=== PATIENT | male | born 1965 | race Caucasian/White ===

== ENCOUNTER → 2017-04-21 | Day surgery (SDC) | payer OTHER ==
[~2017-04-21] VITALS: Ht 172.7 cm; Wt 82.5 kg
[~2017-04-21] MED LIST: 0.9% Sodium Chloride 1,000 ML IV SCH; LISI-571 PO; MULT-666 PO; Sodium Chloride LOK Flush 10 mL Syringe IV PRN; fentaNYL-PF 50 mCg/mL 2 mL Inj IVPUSH PRN
[2017-04-21 12:15] VITALS: BP 146/84; PULSE 63; O2SAT 97
[2017-04-21 13:27] VITALS: BP 130/69; PULSE 69; RESP 16; O2SAT 98
[2017-04-21 13:32] VITALS: BP 116/78; PULSE 69; RESP 16; O2SAT 96
--- NOTE | 2017-04-21 19:23 | ENDO ---
[address] [address] ENDOSCOPY PROCEDURE PATIENT: SAMIR BARRETT : 1965 MR#: [id number] ADMIT: 04/21/2017 JOB ID: [id number] PHYSICIAN: Hernán Lewis MD PROCEDURE: Colonoscopy with hot snare polypectomy. INDICATIONS: A 51-year-old male who reports for colon cancer screening. EQUIPMENT: PCF-H180AL. SEDATION: 5 mg Versed, 100 mcg fentanyl. COMPLICATIONS: None identified. BOWEL PREPARATION: Fair, adequate exam. PROCEDURE INFORMATION: After the risks and benefits were explained, written and verbal informed consent was obtained, the patient was brought into the endoscopy suite and placed into the left lateral decubitus position. Sedation was achieved as above. Digital rectal examination accomplished. No significant pathology appreciated apart from some mild internal/external nonbleeding, nonthrombosed hemorrhoids. The scope was introduced into the rectum and advanced under direct visualization to the level of the cecum, as identified by the appendiceal orifice and ileocecal valve. The scope was slowly withdrawn to carefully examine the mucosa for any defects or lesions. Retroflexed views were avoided in the rectum. Multiple direct views were made through the dentate line for exclusion of pathology. The colon was decompressed. The scope removed from the patient who tolerated the procedure well. FINDINGS: There was an approximately 7 mm sessile polyp in the ascending colon removed with hot snare. In the rectosigmoid region, there was a 5-6 mm, short, pedunculated polyp removed with hot snare. Some diverticulosis was seen in the left colon. Otherwise, no pathology throughout. ENDOSCOPIC DIAGNOSES: 1. Hemorrhoids. 2. Colon polyps. 3. Diverticulosis. RECOMMENDATIONS: 1. Await histopathology. 2. Repeat colonoscopy will likely be suggested for five years' time.
--- NOTE | 2017-04-23 15:31 | PATH ---
SURGICAL PATHOLOGY Attending Physician:Caty Camacho CASE STATUS: Signed Out PATIENT NAME: SAMIR BARRETT PID: [id number] : 1965 DATE COLLECTED:04/21/2017 00:00 SPECIMEN: 1: Colon, Polyp 2: Colon, Polyp CLINICAL HISTORY: 1). ASCENDING COLON POLYP X1 2). RECTOSIGMOID POLYP FINAL DIAGNOSIS: 1. Ascending Colon, Polyp, Biopsy: Portions of tubular adenoma x4; negative for high-grade dysplasia. 2. Rectosigmoid Polyp, Biopsy: Tubular adenoma; negative for high-grade dysplasia. ICD10: K63.5 GROSS DESCRIPTION: The specimen is received in two formalin filled containers labeled with the patient's name. 1). The specimen is labeled "ascending polyp" and consists of 4 portions of tissue which aggregate to 0.3 x 0.3 x 0.2 CM. The specimen is entirely submitted in cassette 1A. 2). The specimen is labeled "recto sigmoid polyp" and consists of a 0.3 x 0.3 x 0.3 CM portion of tissue which is entirely submitted in cassette 2A. 04/22/2017MA ICD-9 CODES: CPT CODES: 1: 26727 2: 91252 Electronically Signed Out Pastora Reyes MD [facility] [address], [place] [address] Technical component performed at [facility], [facility] [address], [place], [address]
== END | disposition home or self-care (01) ==
LOC: END 00:05
PROVIDERS: ATTEND Internal Medicine Gastroenterology
DX: Z12.11 Encounter for screening for malignant neoplasm of colon (principal); D12.2 Benign neoplasm of ascending colon; D12.7 Benign neoplasm of rectosigmoid junction; K57.30 Diverticulosis of large intestine without perforation or abscess without bleeding; K64.8 Other hemorrhoids; I10 Essential (primary) hypertension; Z83.71 Family history of colonic polyps; Z79.899 Other long term (current) drug therapy; Z87.891 Personal history of nicotine dependence
CPT/HCPCS: 45385; 99153; G0500; J2250; J3010; J7030